=== PATIENT | female | born 1995 | race Caucasian/White ===

== ENCOUNTER 2018-01-23 12:44 | Emergency (ER) | payer OTHER ==
--- NOTE | 2018-01-23 13:23 | ED Physician Documentation ---
PD HPI NVD - Stated complaint Stated Complaint: VOMITING - Chief complaint Chief Complaint: Abd Pain - History obtained from History obtained from: Patient - History of Present Illness Timing - onset: Today, Last night Timing - duration: Hours (6-8) Timing - details: Abrupt onset, Still present Associated symptoms: Other (nausea and vomiting repetitively for several hours. Feeling tired and lightheaded.). No: Abdominal pain Contributing factors: No: Sick contact, Bad food (she thinks if might be food poisoning but no obvious bad food.), Recent antibiotics Similar symptoms before: Has not had sx before Recently seen: Not recently seen Review of Systems Constitutional: reports: Myalgias. denies: Fever, Chills Nose: denies: Rhinorrhea / runny nose, Congestion Throat: denies: Sore throat Respiratory: denies: Cough GI: reports: Nausea, Vomiting (many times), Diarrhea (several times). denies: Abdominal Pain PD PAST MEDICAL HISTORY - Past Medical History Cardiovascular: None Respiratory: None Neuro: None Endocrine/Autoimmune: None GI: None - Present Medications Home Medications: Ambulatory Orders Medication Instructions Recorded Confirmed Loperamide [Imodium] 2 mg PO QID PRN #15 capsule 01/23/18 Ondansetron Odt [Zofran] 4 mg TL Q6H PRN #15 tablet 01/23/18 - Allergies Allergies/Adverse Reactions: Allergies Allergy/AdvReac Type Severity Reaction Status Date / Time Sulfa (Sulfonamide Allergy Mild Hives Verified 01/23/18 12:55 Antibiotics) PD ED PE NORMAL - Vitals Vital signs reviewed: Yes - General General: Alert and oriented X 3, Well developed/nourished - HEENT HEENT: Pharynx benign. No: Moist mucous membranes - Neck Neck: Supple, no meningeal sign, No adenopathy - Cardiac Cardiac: RRR, No murmur - Respiratory Respiratory: Clear bilaterally - Abdomen Abdomen: Normal bowel sounds, Soft, Non distended, Other (minimal tenderness periumbilical and just slightly RLQ of that. No guarding and no percussion tenderness. Talked with her about potnetial of N/V as early presenter of appy but such low suspicion right now to just be watchful of developing pain RLQ. ) - Female Female : Deferred - Rectal Rectal: Deferred - Back Back: No CVA TTP - Derm Derm: Warm and dry. No: Normal color (pale) Results - Vitals Vitals: Vital Signs - 24 hr 01/23/18 01/23/18 12:51 16:24 Temperature 36.1 C L Heart Rate 91 87 Respiratory 18 17 Rate Blood Pressure 131/79 H 118/66 O2 Saturation 97 100 Oxygen O2 Source Room air - Labs Labs: Laboratory Tests 01/23/18 01/23/18 14:35 14:35 WBC 8.9 RBC 4.92 Hgb 14.4 Hct 42.1 MCV 85.5 MCH 29.2 MCHC 34.1 RDW 13.1 Plt Count 271 MPV 7.2 L Neut # 7.9 H Lymph # 0.8 L Charles # 0.2 Eos # 0.0 Baso # 0.0 Absolute Nucleated RBC 0.00 Nucleated RBC % 0.0 Sodium 138 Potassium 3.7 Chloride 105 Carbon Dioxide 26 Anion Gap 7.0 BUN 10 Creatinine 0.7 Estimated GFR (MDRD) 104 Glucose 92 Calcium 9.1 Total Bilirubin 0.5 AST 22 ALT 19 Alkaline Phosphatase 58 Total Protein 7.6 Albumin 4.5 Globulin 3.1 Albumin/Globulin Ratio 1.5 Lipase 18 L PD MEDICAL DECISION MAKING - ED course Complexity details: reviewed results, re-evaluated patient (feeling much better with IV fluids and meds. Better color. ), considered differential, d/w patient Departure - Departure Disposition: 01 Home, Self Care Clinical Impression: Nausea vomiting and diarrhea, Dehydration Condition: Stable Record reviewed to determine appropriate education?: Yes Instructions: ED Gastroenteritis Vs Food Poison Follow-Up: DEVORA SMALL MD [Primary Care Provider] - Prescriptions: Loperamide [Imodium] 2 mg PO QID PRN #15 capsule PRN Reason: Diarrhea Ondansetron Odt [Zofran] 4 mg TL Q6H PRN #15 tablet PRN Reason: Nausea / Vomiting Comments: Small frequent fluids. Use ondansetron if needed for nausea and Imodium for diarrhea. Tylenol if needed for cramps or pains. Initially start with bland foods such as rice, crackers, pasta. Progress that as able. He likely still have some nausea for the rest of today into tomorrow then she did feel better after that. Rest off work tonight. Forms: Activity restrictions Discharge Date/Time: 01/23/18 16:25
[2018-01-23] MEDS ORDERED: ONDANSETRON 4 MG/2 ML VIAL IVP STA (13:48)
[2018-01-23] MEDS ORDERED: SODIUM CHLORIDE 0.9% 1,000 ML IV ONE ×2 (13:48)
[2018-01-23] MEDS ORDERED: FAMOTIDINE 20 MG/50 ML 50 ML IV ONE (13:49)
[2018-01-23 14:43] LABS: BASOPHILS % (AUTO) 0.3 %; HGB - HEMOGLOBIN 14.4 g/dL (12.0-16.0); LYMPHOCYTES # (AUTO) 0.8 10^3/uL (1.5-3.5); LYMPHOCYTES % (AUTO) 9.3 %; MEAN CORPUSCULAR HEMOGLOBIN 29.2 pg (27.0-31.0); MEAN CORPUSCULAR HGB CONC 34.1 g/dL (32.0-36.0); MEAN CORPUSCULAR VOLUME 85.5 fL (81.0-99.0); MEAN PLATELET VOLUME 7.2 fL (7.9-10.8); MONOCYTES # (AUTO) 0.2 10^3/uL (0.0-1.0); MONOCYTES % (AUTO) 1.9 %; NEUTROPHILS # (AUTO) 7.9 10^3/uL (1.5-6.6); NEUTROPHILS % (AUTO) 88.5 %; PLT - PLATELET COUNT 271 10^3/uL (130-450); RED BLOOD COUNT 4.92 10^6/uL (4.20-5.40); RED CELL DISTRIBUTION WIDTH 13.1 % (12.0-15.0); WHITE BLOOD COUNT 8.9 x10^3/uL (4.8-10.8)
[2018-01-23 14:56] LABS: ALBUMIN 4.5 g/dL (3.2-5.5); ALBUMIN/GLOBULIN RATIO 1.5 (1.0-2.2); BILIRUBIN,TOTAL 0.5 mg/dL (0.2-1.0); CALCIUM 9.1 mg/dL (8.5-10.3); CREATININE 0.7 mg/dL (0.4-1.0); TOTAL PROTEIN 7.6 g/dL (6.7-8.2)
[2018-01-23 16:24] VITALS: BP 118/66
== END 2018-01-23 16:25 | disposition home or self-care (01) ==
LOC: ED 12:44
DX: E86.0 Dehydration (principal); R11.2 Nausea with vomiting, unspecified; R19.7 Diarrhea, unspecified
CPT/HCPCS: 36415; 80053; 83690; 85025; 96361; 96365; 96375; 99283; 99284